=== PATIENT | male | born 1975 ===

== ENCOUNTER 2024-07-17 09:10 | Day surgery (SDC) | payer BC ==
[2024-07-17] VITALS (13 sets, daily range): BP systolic 87–120; BP diastolic 52–77
[~2024-07-17] VITALS: Ht 177.8 cm; Wt 87.8 kg
[~2024-07-17 09:10] MED LIST: Lactated Ringer's 1,000 ML IV SCH; MULVITA PO
[2024-07-17] MEDS ORDERED: propofoL 20 ML IV ONE (09:21)
--- NOTE | 2024-07-17 09:41 | NUR ---
History, Chart, Medications and Allergies reviewed before start of procedure. Lungs clear T/O to Auscultation. Patient states colon prep results clear. Patient confirms NPO status and agrees with scheduled surgery. Pre-Op teaching done. Pt verbalizes understanding.
--- NOTE | 2024-07-17 10:16 | NUR ---
07/17/24 Johann Flores HISTORY, CHART, MEDICATIONS AND ALLERGIES REVIEWED BEFORE START OF PROCEDURE. PATIENT CONFIRMS NPO STATUS AND AGREES WITH SCHEDULED PROCEDURE. 3-LEAD EKG REVIEWED WITH PHYSICIAN PRIOR TO START OF PROCEDURE. MONITOR INTACT WITH CONTINUOUS PULSE OXIMETRY,CAPNOGRAPHY, 3-LEAD EKG, INTERMITTENT BP. SUPPLEMENTAL O2 TO BE TITRATED THROUGHOUT PROCEDURE TO MAINTAIN O2 SATURATION ABOVE 90%. PATIENT DETERMINED TO BE ASA APPROPRIATE FOR PROPOFOL SEDATION PRIOR TO START OF PROCEDURE BY DR. HUGGINS.
== END 2024-07-17 22:46 | disposition home or self-care (01) ==
LOC: ORSCMMR 09:10 → ORD 10:00 → ORSCMMR 10:00
PROVIDERS: Internal Medicine Gastroenterology
PROC: 0DJD8ZZ Inspection of Lower Intestinal Tract, Via Natural or Artificial Opening Endoscopic (ICD-10-PCS; principal; 2024-07-17 10:00)
DX: Z12.11 Encounter for screening for malignant neoplasm of colon (principal)
CPT/HCPCS: J2704; J7120